=== PATIENT | female | born 1980 | race African-American/Black ===

== ENCOUNTER 2017-01-08 05:05 | Emergency (ER) | payer OTHER ==
[~2017-01-08] VITALS: Ht 180.3 cm; Wt 90.7 kg
[~2017-01-08 05:05] MED LIST: CHLO15MO2 PO; HYDR-971 PO; IBUP-1060 PO; PENI500T PO
--- NOTE | 2017-01-08 06:27 | PHYS DOC ---
Past Medical History Past Medical History: No Pertinent History Past Surgical History: No Surgical History Alcohol Use: None Drug Use: None Adult General Chief Complaint Chief Complaint: NAUSEA/VOMITING/DIARRHA HPI HPI Patient is a 36 year old female who presents with complaint of nausea, vomiting , and diarrhea that started approximately 4 hours ago. Patient states that she has had 5 episodes of vomiting since onset. Patient denies any abdominal pain currently. Patient states that it feels like a possible viral infection. Patient has had at least 2 loose stools since onset. Patient denies any significant past medical history. 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 Patient denies any significant surgical history. Patient states she is currently on her menstrual period. Patient has not taken any medications to help with symptoms. Patient denies any exposure to spoiled food. Review of Systems Review of Systems Constitutional: Denies fever or chills [] Eyes: Denies change in visual acuity, redness, or eye pain [] HENT: Denies nasal congestion or sore throat [] Respiratory: Denies cough or shortness of breath [] Cardiovascular: Denies chest pain or edema [] GI: Nausea, vomiting, diarrhea, denies abdominal pain [] : Denies dysuria or hematuria [] Musculoskeletal: Denies back pain or joint pain [] Integument: Denies rash or skin lesions [] Neurologic: Denies headache, focal weakness or sensory changes [] Endocrine: Denies polyuria or polydipsia [] Current Medications Current Medications Current Medications Medications (Trade) Dose Ordered Sig/[facility] Start Time Stop Time Status Last Admin Dose Admin Famotidine 20 mg 20 mg 1X ONCE 01/08/17 06:30 01/08/17 06:31 DC 01/08/17 06:37 20 MG Ondansetron HCl (Zofran) 4 mg 1X ONCE 01/08/17 06:30 01/08/17 06:31 DC 01/08/17 06:37 4 MG Sodium Chloride (Iv Sodium Chloride 0.9% 500ml Bag) 500 ml @ 500 mls/hr 1X ONCE 01/08/17 06:30 01/08/17 07:29 DC 01/08/17 06:37 500 MLS/HR Allergies Allergies Allergies Coded Allergies Type Severity Reaction Last Updated Verified Penicillins Adverse Reaction Intermediate Nausea 07/01/15 No Physical Exam Physical Exam Constitutional: Alert, afebrile, vital signs stable. [] HENT: Normocephalic, atraumatic, bilateral external ears normal, oropharynx moist, no oral exudates, nose normal. [] Eyes: PERRLA, EOMI, conjunctiva normal, no discharge. [] Neck: Normal range of motion, no tenderness, supple, no stridor. [] Cardiovascular:Heart rate regular rhythm, no murmur [] Lungs & Thorax: Bilateral breath sounds clear to auscultation [] Abdomen: Bowel sounds normal, soft, no tenderness, no masses, no pulsatile masses. [] Skin: Warm, dry, no erythema, no rash. [] Back: No tenderness, no CVA tenderness. [] Extremities: No tenderness, no cyanosis, no clubbing, ROM intact, no edema. [] Neurologic: Alert and oriented X 3, normal motor function, normal sensory function, no focal deficits noted. [] Current Patient Data Vital Signs Vital Signs Date Time Temp Pulse Resp B/P Pulse Ox O2 Delivery O2 Flow Rate FiO2 01/08/17 06:07 98.2 72 20 147/94 100 Room Air 98.2 Lab Values Laboratory Tests Test 01/08/17 05:50 White Blood Count 6.5x10^3/uL (4.0-11.0) Red Blood Count 3.63x10^6/uL (3.50-5.40) Hemoglobin 10.7g/dL (12.0-15.5) L Hematocrit 33.2% (36.0-47.0) L Mean Corpuscular Volume 91fL (79-100) Mean Corpuscular Hemoglobin 30pg (25-35) Mean Corpuscular Hemoglobin Concent 32g/dL (31-37) Red Cell Distribution Width 14.4% (11.5-14.5) Platelet Count 228x10^3/uL (140-400) Neutrophils (%) (Auto) 80% (31-73) H Lymphocytes (%) (Auto) 13% (24-48) L Monocytes (%) (Auto) 6% (0-9) Eosinophils (%) (Auto) 1% (0-3) Basophils (%) (Auto) 0% (0-3) Neutrophils # (Auto) 5.2x10^3uL (1.8-7.7) Lymphocytes # (Auto) 0.8x10^3/uL (1.0-4.8) L Monocytes # (Auto) 0.4x10^3/uL (0.0-1.1) Eosinophils # (Auto) 0.1x10^3/uL (0.0-0.7) Basophils # (Auto) 0.0x10^3/uL (0.0-0.2) Sodium Level 143mmol/L (136-145) Potassium Level 3.3mmol/L (3.5-5.1) L Chloride Level 109mmol/L (98-107) H Carbon Dioxide Level 26mmol/L (21-32) Anion Gap 8 (6-14) Blood Urea Nitrogen 7mg/dL (7-20) Creatinine 0.9mg/dL (0.6-1.0) Estimated GFR (Cockcroft-Gault) 85.2 BUN/Creatinine Ratio 8 (6-20) Glucose Level 130mg/dL (70-99) H Calcium Level 9.2mg/dL (8.5-10.1) Total Bilirubin 0.4mg/dL (0.2-1.0) Aspartate Amino Transferase (AST) 9U/L (15-37) L Alanine Aminotransferase (ALT) 12U/L (14-59) L Alkaline Phosphatase 55U/L (46-116) Total Protein 7.9g/dL (6.4-8.2) Albumin 3.7g/dL (3.4-5.0) Albumin/Globulin Ratio 0.9 (1.0-1.7) L Lipase 232U/L (73-393) Serum Test, Qualitative Negative (NEG) Laboratory Tests 01/08/17 05:50 Laboratory Tests 01/08/17 05:50 EKG EKG Not performed [] Radiology/Procedures Radiology/Procedures Not performed [] Course & Med Decision Making Course & Med Decision Making Pertinent Labs and Imaging studies reviewed. (See chart for details) Patient was given IV fluids, Zofran, and Pepcid. On reevaluation, patient's symptoms have improved at this time. The patient's symptoms appear consistent with viral gastroenteritis. The patient will be continued on Zofran and Pepcid as outpatient with recommended follow-up in 3-5 days a primary doctor if symptoms are not improving. Advised return emergency department for any worsening symptoms. Patient voiced understanding and in agreement with treatment plan. Dragon Disclaimer Dragon Disclaimer This electronic medical record was generated, in whole or in part, using a voice recognition dictation system. Departure Departure Impression: Primary Impression: Nausea & vomiting Additional Impression: Diarrhea Disposition: 01 HOME, SELF-CARE Condition: IMPROVED Referrals: NO PCP (PCP) Patient Instructions: Diarrhea, Nausea and Vomiting Additional Instructions: Be sure to drink plenty of fluids to stay hydrated until symptoms resolve. Follow-up with your primary doctor in 3-5 days if symptoms are not improving. Return to the emergency department for any worsening symptoms. Scripts Famotidine (Pepcid)20 Mg [id number] Mg PO BID #30 TAB Prov:RAMEZ NORWOOD MD 01/08/17 Ondansetron (Zofran Odt)4 Mg Tab.rapdis4 Mg PO Q6-8HRS PRN NAUSEA/VOMITING #15 TAB Prov:RAMEZ NORWOOD MD 01/08/17 Problem Qualifiers Primary Impression: Nausea & vomiting Vomiting type: unspecified Vomiting Intractability: non-intractable Qualified Code: R11.2 - Nausea with vomiting, unspecified Additional Impression: Diarrhea Diarrhea type: presumed infectious Qualified Code: A09 - Infectious gastroenteritis and colitis, unspecified RAMEZ NORWOOD MD Jan 08, 2017 06:27
[2017-01-08] MEDS ORDERED: IV NORMAL SALINE 500ML BAG 500 ML IV ONE (06:30)
[2017-01-08] MEDS ORDERED: ONDANSETRON PF 4 MG/2 ML VIAL. IV ONE (06:30)
[2017-01-08] MEDS ORDERED: FAMOTIDINE 20 MG/2 ML VIAL IVP ONE (06:30)
[2017-01-08 07:04] LABS: CALCIUM 9.2 mg/dL (8.5-10.1); CREATININE 0.9 mg/dL (0.6-1.0); GFR 85.2; POTASSIUM 3.3 mmol/L (3.5-5.1)
[2017-01-08 07:08] LABS: NEG OBC SER NEG; POS OBC SER POS
[2017-01-08 07:11] LABS: ALBUMIN 3.7 g/dL (3.4-5.0); ALBUMIN/GLOBULIN RATIO 0.9 (1.0-1.7); TOTAL BILIRUBIN 0.4 mg/dL (0.2-1.0); TOTAL PROTEIN 7.9 g/dL (6.4-8.2)
[2017-01-08 07:15] LABS: BASO % 0 % (0-3); EOS % 1 % (0-3); HEMATOCRIT 33.2 % (36.0-47.0); HEMOGLOBIN 10.7 g/dL (12.0-15.5); LYMPH # 0.8 x10^3/uL (1.0-4.8); LYMPH % 13 % (24-48); MEAN CORPUSCULAR HEMOGLOBIN 30 pg (25-35); MEAN CORPUSCULAR HGB CONC 32 g/dL (31-37); MEAN CORPUSCULAR VOLUME 91 fL (79-100); MONO % 6 % (0-9); NEUT % 80 % (31-73); PLATELET COUNT 228 x10^3/uL (140-400); RED BLOOD COUNT 3.63 x10^6/uL (3.50-5.40); RED CELL DISTRIBUTION WIDTH 14.4 % (11.5-14.5); WHITE BLOOD COUNT 6.5 x10^3/uL (4.0-11.0)
[2017-01-08] MEDS ORDERED: FAMO-63 PO (07:38)
[2017-01-08] MEDS ORDERED: ONDA4TAB10 PO (07:38)
[2017-01-08 07:56] VITALS: BP 141/92
== END 2017-01-08 07:58 | disposition home or self-care (01) ==
LOC: ER 05:05
DX: R11.2 Nausea with vomiting, unspecified (principal); R19.7 Diarrhea, unspecified; Z88.0 Allergy status to penicillin
CPT/HCPCS: 36415; 80053; 83690; 84703; 85027; 96361; 96374; 96375; 99284; J2405; J7040; S0028

== ENCOUNTER 2017-03-09 03:27 | Emergency (ER) | payer OTHER ==
[~2017-03-09] VITALS: Ht 180.3 cm; Wt 93.0 kg
[~2017-03-09 03:27] MED LIST changes: +FAMO-63 PO; +ONDA4TAB10 PO
[2017-03-09 04:11] LABS: BASO % 1 % (0-3); EOS % 4 % (0-3); HEMATOCRIT 33.1 % (36.0-47.0); LYMPH # 1.4 x10^3/uL (1.0-4.8); LYMPH % 28 % (24-48); MEAN CORPUSCULAR HEMOGLOBIN 31 pg (25-35); MEAN CORPUSCULAR HGB CONC 33 g/dL (31-37); MEAN CORPUSCULAR VOLUME 92 fL (79-100); MONO % 11 % (0-9); NEUT % 56 % (31-73); PLATELET COUNT 255 x10^3/uL (140-400); RED BLOOD COUNT 3.61 x10^6/uL (3.50-5.40); RED CELL DISTRIBUTION WIDTH 13.3 % (11.5-14.5)
[2017-03-09 04:23] LABS: CREATININE 0.9 mg/dL (0.6-1.0); GFR 85.2; POTASSIUM 3.3 mmol/L (3.5-5.1)
[2017-03-09 04:28] LABS: ALBUMIN 3.6 g/dL (3.4-5.0); ALBUMIN/GLOBULIN RATIO 0.9 (1.0-1.7); TOTAL BILIRUBIN 0.3 mg/dL (0.2-1.0); TOTAL PROTEIN 7.5 g/dL (6.4-8.2)
[2017-03-09] MEDS ORDERED: ONDANSETRON PF 4 MG/2 ML VIAL. IV ONE (04:30)
[2017-03-09] MEDS ORDERED: IV NORMAL SALINE 1000ML BAG 1,000 ML IV SCH (04:30)
[2017-03-09 05:19] LABS: BILIRUBIN,URINE NEGATIVE (NEG); GLUCOSE,URINE NEGATIVE (NEG); NITRITE,URINE NEGATIVE (NEG); PH,URINE 6.5; PROTEIN,URINE 30 mg/dL (NEG-TRACE)
[2017-03-09 05:34] LABS: BACTERIA,URINE FEW /HPF (0-FEW); SQUAMOUS EPITHELIAL CELL,UR MOD /LPF
[2017-03-09 06:08] VITALS: BP 118/78
[2017-03-09] MEDS ORDERED: ONDA4TAB10 SL (06:33)
--- NOTE | 2017-03-09 06:33 | PHYS DOC ---
Past Medical History Past Medical History: No Pertinent History Past Surgical History: No Surgical History Alcohol Use: None Drug Use: None Adult General Chief Complaint Chief Complaint: DIZZY/LIGHT HEADED HPI HPI Patient is a 36 year old female who presents here today secondary to feel lightheaded and dizzy for approximately 3 days. Patient denies any fevers shakes chills diarrhea dysuria frequency urgency polyuria chest pain or abdominal pain. Patient reports she's had 2 episodes of vomiting over the last 24 hours. Patient reports decreased by mouth intake secondary to nausea. Patient has any history of hypertension diabetes liver longer kidney problems heart failure COPD coronary disease asthma. Patient has any abdominal surgeries. Patient not smoke drink or do drugs. Patient is not allergic to any medications. 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 Patient's physical exam was unremarkable. Patient's heart was regular rhythm. Lungs were clear abdomen benign neuro was normal. Patient has a GCS of 15. She is alert awake and oriented 3. Normal cerebellar exam. No focal deficits. Patient's ER evaluation revealed normal labs. His vital signs remained normal the ER. Patient did receive a liter of normal saline the ER as well as Zofran to assist her. Patient felt much improved and was discharged home in stable condition. #1 lightheaded/dizzy: Etiology unclear likely secondary to viral illness possibly patient is clinically and hemodynamically stable. I discussed with the patient that the sources still unclear and that she should follow up with her primary care physician for further evaluation. Patient was given the day off from work today so that she can go and see her primary care physician for reevaluation. Review of Systems Review of Systems Constitutional: Denies fever or chills [] Eyes: Denies change in visual acuity, redness, or eye pain [] HENT: Denies nasal congestion or sore throat [] All other review systems are negative except as documented in history of present illness portion. Current Medications Current Medications Current Medications Medications (Trade) Dose Ordered Sig/[facility] Start Time Stop Time Status Last Admin Dose Admin Ondansetron HCl (Zofran) 4 mg 1X ONCE 03/09/17 04:30 03/09/17 04:31 DC 03/09/17 04:30 4 MG Sodium Chloride (Iv Sodium Chloride 0.9% 1000ml Bag) 1,000 ml @ 1,000 mls/hr Q1H 03/09/17 04:30 03/09/17 05:29 DC 03/09/17 04:30 1,000 MLS/HR Allergies Allergies Allergies Coded Allergies Type Severity Reaction Last Updated Verified Penicillins Adverse Reaction Intermediate Nausea 07/01/15 No Physical Exam Physical Exam Constitutional: Well developed, well nourished, no acute distress, non-toxic appearance. [] HENT: Normocephalic, atraumatic, bilateral external ears normal, oropharynx moist, no oral exudates, nose normal. [] Eyes: PERRLA, EOMI, conjunctiva normal, no discharge. [] Neck: Normal range of motion, no tenderness, supple, no stridor. [] Cardiovascular:Heart rate regular rhythm, no murmur [] Lungs & Thorax: Bilateral breath sounds clear to auscultation [] Abdomen: Bowel sounds normal, soft, no tenderness, no masses, no pulsatile masses. [] Skin: Warm, dry, no erythema, no rash. [] Back: No tenderness, no CVA tenderness. [] Extremities: No tenderness, no cyanosis, no clubbing, ROM intact, no edema. [] Neurologic: Alert and oriented X 3, normal motor function, normal sensory function, no focal deficits noted. [] Psychologic: Affect normal, judgement normal, mood normal. [] Current Patient Data Vital Signs Vital Signs Date Time Temp Pulse Resp B/P Pulse Ox O2 Delivery O2 Flow Rate FiO2 03/09/17 06:08 71 18 118/78 98 Room Air 03/09/17 03:45 97.7 97.7 Lab Values Laboratory Tests Test 03/09/17 03:25 03/09/17 03:45 03/09/17 04:11 Urine Collection Type Unknown Urine Color Yellow Urine Clarity Cloudy Urine pH 6.5 Urine Specific [place] 1.025 Urine Protein 30mg/dL (NEG-TRACE) Urine Glucose (UA) Negativemg/dL (NEG) Urine Ketones (Stick) Negativemg/dL (NEG) Urine Blood Large (NEG) Urine Nitrite Negative (NEG) Urine Bilirubin Negative (NEG) Urine Urobilinogen Dipstick 1.0mg/dL (0.2 mg/dL) Urine Leukocyte Esterase Moderate (NEG) Urine RBC 3-5/HPF (0-2) Urine WBC 5-10/HPF (0-4) Urine Squamous Epithelial Cells Mod/LPF Urine Bacteria Few/HPF (0-FEW) Urine Mucus Mod/LPF White Blood Count 5.0x10^3/uL (4.0-11.0) Red Blood Count 3.61x10^6/uL (3.50-5.40) Hemoglobin 11.0g/dL (12.0-15.5) L Hematocrit 33.1% (36.0-47.0) L Mean Corpuscular Volume 92fL (79-100) Mean Corpuscular Hemoglobin 31pg (25-35) Mean Corpuscular Hemoglobin Concent 33g/dL (31-37) Red Cell Distribution Width 13.3% (11.5-14.5) Platelet Count 255x10^3/uL (140-400) Neutrophils (%) (Auto) 56% (31-73) Lymphocytes (%) (Auto) 28% (24-48) Monocytes (%) (Auto) 11% (0-9) H Eosinophils (%) (Auto) 4% (0-3) H Basophils (%) (Auto) 1% (0-3) Neutrophils # (Auto) 2.8x10^3uL (1.8-7.7) Lymphocytes # (Auto) 1.4x10^3/uL (1.0-4.8) Monocytes # (Auto) 0.5x10^3/uL (0.0-1.1) Eosinophils # (Auto) 0.2x10^3/uL (0.0-0.7) Basophils # (Auto) 0.0x10^3/uL (0.0-0.2) Sodium Level 145mmol/L (136-145) Potassium Level 3.3mmol/L (3.5-5.1) L Chloride Level 107mmol/L (98-107) Carbon Dioxide Level 29mmol/L (21-32) Anion Gap 9 (6-14) Blood Urea Nitrogen 10mg/dL (7-20) Creatinine 0.9mg/dL (0.6-1.0) Estimated GFR (Cockcroft-Gault) 85.2 BUN/Creatinine Ratio 11 (6-20) Glucose Level 105mg/dL (70-99) H Calcium Level 9.0mg/dL (8.5-10.1) Total Bilirubin 0.3mg/dL (0.2-1.0) Aspartate Amino Transferase (AST) 12U/L (15-37) L Alanine Aminotransferase (ALT) 17U/L (14-59) Alkaline Phosphatase 58U/L (46-116) Troponin I Quantitative < 0.017ng/mL (0.000-0.055) Total Protein 7.5g/dL (6.4-8.2) Albumin 3.6g/dL (3.4-5.0) Albumin/Globulin Ratio 0.9 (1.0-1.7) L POC Urine HCG, Qualitative Hcg negative (Negative) Laboratory Tests 03/09/17 03:45 Laboratory Tests 03/09/17 03:45 EKG EKG [] Radiology/Procedures Radiology/Procedures [] Course & Med Decision Making Course & Med Decision Making Pertinent Labs and Imaging studies reviewed. (See chart for details) [] Dragon Disclaimer Dragon Disclaimer This electronic medical record was generated, in whole or in part, using a voice recognition dictation system. Departure Departure Impression: Primary Impression: Nausea & vomiting Additional Impression: Dehydration Disposition: 01 HOME, SELF-CARE Condition: IMPROVED Referrals: NO PCP (PCP) Patient Instructions: Dehydration, Adult, Nausea and Vomiting Scripts Ondansetron (Zofran Odt)4 Mg Tab.rapdis1 Tab SL Q6HRS PRN NAUSEA #12 TAB Prov:RACHEL GARCIA MD 03/09/17 Problem Qualifiers RACHEL GARCIA MD Mar 09, 2017 06:33
--- NOTE | 2017-03-09 07:42 | EKG ---
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
== END 2017-03-09 06:40 | disposition home or self-care (01) ==
LOC: ER 03:27
DX: R11.2 Nausea with vomiting, unspecified (principal); E86.0 Dehydration; R42 Dizziness and giddiness; Z88.0 Allergy status to penicillin
CPT/HCPCS: 36415; 80053; 81001; 81025; 84484; 85027; 93005; 96361; 96374; 99285; J2405; J7030; 87086

== ENCOUNTER → 2017-04-05 | Outpatient (CLI) | payer OTHER ==
[2017-03-09 06:08] VITALS: BP 118/78
[~2017-04-05] MED LIST changes: +ONDA4TAB10 SL
--- NOTE | 2017-04-05 08:59 | KCIC ---
PROCEDURE Lumbar radiographs HISTORY Acute right-sided low back pain, left-sided sciatica for 1 month COMPARISON None FINDINGS Five views of the lumbar spine are submitted. There is mild levoscoliosis centered about L4. Lumbar vertebral body stature and AP alignment are maintained. Intervertebral disc spaces are adequate. No acute osseous abnormality is identified by radiographs. IMPRESSION There is mild lumbar levoscoliosis. Electronically signed by: Ham Sparks MD (April 05, 2017 08:58:07)
== END | disposition home or self-care (01) ==
LOC: KCIC 08:28
PROVIDERS: ATTEND Family Medicine
DX: M41.86 Other forms of scoliosis, lumbar region (principal)
CPT/HCPCS: 72110

== ENCOUNTER 2017-12-07 04:44 | Emergency (ER) | payer OTHER ==
[2017-12-07] MEDS: ACETAMINOPHEN 500 MG TABLET PO (05:43)
[2017-12-07] MEDS: IBUPROFEN 800 MG TABLET. PO (05:44)
[2017-12-07] MEDS: ONDANSETRON ODT 4 MG TAB.RAPDIS. PO (05:44)
[2017-12-07 06:19] LABS: NEGATIVE OBC STREP NEG; POSITIVE OBC STREP POS
[2017-12-07 06:36] LABS: INFLUENZA A PATIENT NEGATIVE (NEGATIVE)
[2017-12-07 06:37] LABS: INFLUENZA B PATIENT NEGATIVE (NEGATIVE); OBC FLU VALID
== END 2017-12-07 07:25 | disposition home or self-care (01) ==
LOC: ER 04:44
DX: B34.9 Viral infection, unspecified (principal); Z88.0 Allergy status to penicillin
CPT/HCPCS: 71045; 87070; 87804; 87804-59; 87880; 99285-25; Q0162

== ENCOUNTER 2020-11-13 06:42 | Emergency (ER) | payer SELFPAY ==
[~2020-11-13] VITALS: Ht 180.3 cm; Wt 84.0 kg
[~2020-11-13 06:42] MED LIST changes: +CODE10LI PO; +HYDR-3164 PO; -HYDR-971 PO; +OSEL75CA PO
--- NOTE | 2020-11-13 06:51 | PHYS DOC ---
Past Medical History Past Medical History: No Pertinent History Past Surgical History: No Surgical History Smoking Status: Never Smoker Alcohol Use: Rarely Drug Use: None General Adult EDM: Chief Complaint: BLOOD IN URINE HPI: HPI: 40-year-old female presents with report of clear vaginal discharge that has been ongoing for the past several weeks. Patient also reports some low back pain. Denies dysuria or hematuria. Patient reports was recently seen at [facility] for same and reports had her urine tested and did a vaginal swab. Reports she was called and notified she had bacterial vaginosis and was started on MetroGel as she is unable to tolerate the Flagyl PO. Patient reports she took as directed but continued to have the discharge. Patient reports yesterday she noted significant amount of bleeding after intercourse with her . Patient reports a similar occurrence 6 months ago. 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 Reports she looked up her symptoms on "[employer] "and was concerned for a serious issue. Patient therefore presents to the ER for further evaluation. Review of Systems: Review of Systems: Constitutional: Denies fever or chills Eyes: Denies redness or eye pain HENT: Denies nasal congestion or sore throat Respiratory: Denies cough or shortness of breath Cardiovascular: Denies chest pain or palpitations GI: Denies abdominal pain, nausea, or vomiting : Denies dysuria or hematuria PHOTOVOLTAIC SOLAR CELL DESIGNER: Reports abnormal vaginal bleeding and vaginal discharge Musculoskeletal: Reports low back pain; denies joint pain Integument: Denies rash or skin lesions Neurologic: Denies headache, focal weakness or sensory changes Complete systems were reviewed and found to be within normal limits, except as documented in this note. Allergies: Allergies: Allergies Coded Allergies Type Severity Reaction Last Updated Verified Penicillins Adverse Reaction Intermediate Nausea 07/01/15 No Physical Exam: PE: Constitutional: Well developed, well nourished, no acute distress, non-toxic appearance HENT: Normocephalic, atraumatic Eyes: Conjunctiva normal, no discharge Neck: Normal range of motion, no tenderness, supple Lungs & Thorax: No respiratory distress, equal chest rise and fall Abdomen: Soft, no tenderness, no guarding/rebound tenderness/distention Skin: Warm, dry, no erythema, no rash Back: No midline tenderness, bilateral lumbar paraspinal tenderness, no CVA tenderness 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 The patient reportedly could not undergo transvaginal examination due to significant pain when it was attempted. Urinary bladder is empty and is also limits evaluation. Uterus measures 11 cm x 4.8 cm x 5 cm. Heterogeneity of the myometrium is noted. Fibroid involvement of the myometrium especially inferiorly is suspected on this limited exam. Endometrial thickness of 0.6 cm present. Minimal fluid is questioned in the endometrial cavity. Ovaries are not visualized. No suspicious pelvic mass suspected. No pelvic free fluid. Impression: Minimal fluid in the endometrial cavity suggested. Fibroid involvement of the myometrium. Electronically signed by: Ankit Aquino MD (11/13/2020 8:44 AM) [id number] PROCEDURE: CT ABD PELV W/ IV CONTRST ONLY Examination: CT ABDOMEN+PELVIS W History: pelvic pain, vaginal bleeding, mass noted eval for fibroid vs abnormal mass Comparison/Correlation: 11/15/2005 CT abdomen with contrast, 11/13/2020 pelvic ultrasound Findings: Axial images of the abdomen and pelvis were obtained following IV contrast. Sagittal and coronal reformatted images were provided. Mild distention of the left hepatic duct is new since the prior exam. No intrahepatic biliary dilatation otherwise. No common bile duct dilatation. Spleen, pancreas, adrenal glands, and kidneys are normal. Urinary bladder is unremarkable. No bowel obstruction or extraluminal gas. Moderate reversible component is present. No inflammatory findings within the cecum. Fullness of the lower uterine segment which probably corresponds with fibroid involvement noted at this level on ultrasound examination is present. Artifact limits evaluation however. Small amount of pelvic free fluid is present. No extraluminal gas. No obstruction. Bony structures are unremarkable. Impression: Nonspecific mild dilatation of the left hepatic duct is present. Correlate clinically in determining further imaging assessment with MRCP exam without and with contrast if able. Fullness of the lower uterine segment which probably may represent fibroid involvement. Exam is somewhat limited due to artifact. Further evaluation with MRI of the pelvis without and with contrast is recommended. Multiple for more definitive assessment on a nonemergent basis. Electronically signed by: Ankit Aquino MD (11/13/2020 9:56 AM) [id number] Course & Med Decision Making: Course & Med Decision Making Pertinent Labs and Imaging studies reviewed. (See chart for details) Patient presents with report of vaginal discharge for the past several weeks combined with abnormal vaginal bleeding yesterday. Patient had previously been seen at [facility] and tested for STDs. Reports history of BV, of which patient reports using MetroGel. Pelvic exam performed. Labs obtained and posted to chart. Pelvic ultrasound..... Patient stable for discharge with outpatient follow-up with PCP/PHOTOVOLTAIC SOLAR CELL DESIGNER. PHOTOVOLTAIC SOLAR CELL DESIGNER referral provided. Discussed findings and plan with patient, who acknowledges understanding and agreement. Dragon Disclaimer: Jaun Disclaimer: This electronic medical record was generated, in whole or in part, using a voice recognition dictation system. Departure Departure Impression: Primary Impression: Abnormal vaginal bleeding Additional Impressions: Hypokalemia Anemia Qualified Codes: D64.9 - Anemia, unspecified Disposition: 01 DC HOME SELF CARE/HOMELESS Condition: STABLE Referrals: NO PCP (PCP) GREG WOOD Jr, MD Patient Instructions: Abnormal Uterine Bleeding, Anemia, FAQs, Hypokalemia, Potassium Content of Foods, Uterine Fibroid, [id number] Additional Instructions: Pelvic rest until seen by Dr. Wood. (NO sexual activity, tampons, etc) Call Dr. Wood's office today. Let them know that the ED physician, Dr. Durbin, discussed your case with Dr. Wood and had planned on trying to get you into the office early next week. KORI DURBIN DO Nov 13, 2020 06:51
[2020-11-13] MEDS ORDERED: IV NORMAL SALINE 1000ML BAG 1,000 ML IV ONE (07:15)
[2020-11-13 07:56] LABS: BASO % 1 % (0-3); EOS # 0.1 x10^3/uL (0.0-0.7); EOS % 1 % (0-3); HEMATOCRIT 24.6 % (36.0-47.0); LYMPH # 0.8 x10^3/uL (1.0-4.8); LYMPH % 13 % (24-48); MEAN CORPUSCULAR HEMOGLOBIN 28 pg (25-35); MEAN CORPUSCULAR HGB CONC 33 g/dL (31-37); MEAN CORPUSCULAR VOLUME 85 fL (79-100); MONO # 0.5 x10^3/uL (0.0-1.1); MONO % 8 % (0-9); NEUT # 4.7 x10^3/uL (1.8-7.7); NEUT % 78 % (31-73); PLATELET COUNT 266 x10^3/uL (140-400); RED BLOOD COUNT 2.89 x10^6/uL (3.50-5.40); RED CELL DISTRIBUTION WIDTH 16.1 % (11.5-14.5)
[2020-11-13 08:18] LABS: PREG TEST PT QUAL NEGATIVE (NEG)
[2020-11-13 08:23] LABS: ALBUMIN 3.4 g/dL (3.4-5.0); CALCIUM 8.7 mg/dL (8.5-10.1); CREATININE 0.7 mg/dL (0.6-1.0); GFR 111.6; MAGNESIUM 1.8 mg/dL (1.8-2.4); TOTAL BILIRUBIN 0.5 mg/dL (0.2-1.0); TOTAL PROTEIN 6.9 g/dL (6.4-8.2)
[2020-11-13 08:28] LABS: POTASSIUM 2.7 mmol/L (3.5-5.1)
--- NOTE | 2020-11-13 08:46 | RAD ---
Examination: US PELVIS COMPLETE History: menorrhagia Comparison/Correlation: None Findings: Transabdominal pelvic ultrasound performed. The patient reportedly could not undergo transv aginal examination due to significant pain when it was attempted. Urinary bladder is empty and is als o limits evaluation. Uterus measures 11 cm x 4.8 cm x 5 cm. Heterogeneity of the myometrium is noted. Fibroid involvement of the myometrium especially inferiorly is suspected on this limited exam. Endometrial thickness of 0 .6 cm present. Minimal fluid is questioned in the endometrial cavity. Ovaries are not visualized. No suspicious pelvic mass suspected. No pelvic free fluid. Impression: Minimal fluid in the endometrial cavity suggested. Fibroid involvement of the myometrium. Electronically signed by: Ankit Aquino MD (11/13/2020 8:44 AM) [id number]
[2020-11-13] MEDS ORDERED: IOHEXOL 300 MG/ML 100ML VIAL. IV ONE (09:30)
[2020-11-13] MEDS ORDERED: CONTRAST GIVEN. MC PRN (09:30)
[2020-11-13 09:43] LABS: BILIRUBIN,URINE NEGATIVE (NEG); CLARITY,URINE CLOUDY; COLOR,URINE RED; NITRITE,URINE NEGATIVE (NEG); PROTEIN,URINE 100 mg/dL (NEG-TRACE); UROBILINOGEN,URINE 0.2 mg/dL (0.2 mg/dL)
[2020-11-13 09:49] LABS: RBC,URINE TNTC /HPF (0-2)
[2020-11-13 09:50] LABS: BACTERIA,URINE FEW /HPF (0-FEW)
--- NOTE | 2020-11-13 09:59 | RAD ---
Examination: CT ABDOMEN+PELVIS W History: pelvic pain, vaginal bleeding, mass noted eval for fibroid vs abnormal mass Comparison/Correlation: 11/15/2005 CT abdomen with contrast, 11/13/2020 pelvic ultrasound Findings: Axial images of the abdomen and pelvis were obtained following IV contrast. Sagittal and co eric reformatted images were provided. Mild distention of the left hepatic duct is new since the prior exam. No intrahepatic biliary dilatat ion otherwise. No common bile duct dilatation. Spleen, pancreas, adrenal glands, and kidneys are norm al. Urinary bladder is unremarkable. No bowel obstruction or extraluminal gas. Moderate reversible compon ent is present. No inflammatory findings within the cecum. Fullness of the lower uterine segment which probably corresponds with fibroid involvement noted at th is level on ultrasound examination is present. Artifact limits evaluation however. Small amount of pelvic free fluid is present. No extraluminal gas. No obstruction. Bony structures are unremarkable. Impression: Nonspecific mild dilatation of the left hepatic duct is present. Correlate clinically in determining further imaging assessment with MRCP exam without and with contrast if able. Fullness of the lower uterine segment which probably may represent fibroid involvement. Exam is somew hat limited due to artifact. Further evaluation with MRI of the pelvis without and with contrast is r ecommended. Multiple for more definitive assessment on a nonemergent basis. Electronically signed by: Ankit Aquino MD (11/13/2020 9:56 AM) [id number]
[2020-11-13 10:18] VITALS: BP 144/75
[2020-11-13] MEDS ORDERED: POTASSIUM BICARB 20 MEQ EFFERVESCENT TABLET. PO ONE (11:00)
== END 2020-11-13 12:00 | disposition home or self-care (01) ==
LOC: ER 06:42
DX: N93.8 Other specified abnormal uterine and vaginal bleeding (principal); E87.6 Hypokalemia; D64.9 Anemia, unspecified; M54.5 Low back pain
CPT/HCPCS: 74177; 76856; 80053; 81001; 83735; 84703; 85025; 87086; 87491; 87591; 96360; 99285; J7030; Q0111; Q9967

== ENCOUNTER 2020-12-02 09:08 | Emergency (ER) | payer SELFPAY ==
[~2020-12-02] VITALS: Ht 182.9 cm; Wt 84.0 kg
[2020-12-02 09:20] VITALS: BP 164/67
--- NOTE | 2020-12-02 09:28 | PHYS DOC ---
Past Medical History Past Medical History: No Pertinent History (RANDALL KERNS APRN) Past Surgical History: No Surgical History (RANDALL KERNS APRN) Smoking Status: Never Smoker Alcohol Use: Rarely Drug Use: None (RANDALL KERNS APRN) General Adult EDM: Chief Complaint: ABDOMINAL PAIN HPI: HPI: Patient is a 40 year old female with history of newly diagnosed uterine fibroids on November 13, 2020 who presents to the ED today complaining of moderate pelvic pain from the fibroids. She states she has had this pain on and off since her diagnosis but today her period started and the pain got worse. She states she tried following up with DR. Wood [facility] and go to the office and was told she has to pay money which she did not have. She states she followed up with [facility] who told her they we will set her up with a program that will unable her to have a hysterectomy. She states she currently needs something for pain to hold her up until she is seen at [facility]. She states her bleeding is minimal. She is also asking if we can do hysterectomy in the ED. She states she has tried taking Tylenol and Motrin as recommended with no relief (RANDALL KERNS APRN) Review of Systems: Review of Systems: Constitutional: Denies fever or chills. [] Eyes: Denies change in visual acuity. [] HENT: Denies nasal congestion or sore throat. [] Respiratory: Denies cough or shortness of breath. [] Cardiovascular: Denies chest pain or edema. [] GI: Reports abdominal pain, denies nausea, vomiting, bloody stools or diarrhea. [] : Denies dysuria. [] Musculoskeletal: Denies back pain or joint pain. [] Integument: Denies rash. [] Neurologic: Denies headache, focal weakness or sensory changes. [] Psychiatric: Denies depression or anxiety. [] (RANDALL KERNS APRN) Heart Score: Risk Factors: Risk Factors: DM, Current or recent (<one month) smoker, HTN, HLP, family history of CAD, obesity. Risk Scores: Score 0 - 3: 2.5% MACE over next 6 weeks - Discharge Home Score 4 - 6: 20.3% MACE over next 6 weeks - Admit for Clinical Observation Score 7 - 10: 72.7% MACE over next 6 weeks - Early Invasive Strategies (RANDALL KERNS APRN) Allergies: Allergies: Allergies Coded Allergies Type Severity Reaction Last Updated Verified Penicillins Adverse Reaction Intermediate Nausea 07/01/15 No (RANDALL KERNS APRN) Physical Exam: PE: Constitutional: Well developed, well nourished, no acute distress, non-toxic appearance. [] HENT: Normocephalic, atraumatic, bilateral external ears normal, oropharynx moist, no oral exudates, nose normal. [] Eyes: PERRLA, EOMI, conjunctiva normal, no discharge. [] Neck: Normal range of motion, no tenderness, supple, no stridor. [] Cardiovascular:Heart rate regular rhythm, no murmur [] Lungs & Thorax: Bilateral breath sounds clear to auscultation [] Abdomen: Bowel sounds normal, soft, no tenderness, no masses, no pulsatile masses. [] Pelvic exam deferred per patient request. Skin: Warm, dry, no erythema, no rash. [] Back: No tenderness, no CVA tenderness. [] Extremities: No tenderness, no cyanosis, no clubbing, ROM intact, no edema. [] Neurologic: Alert and oriented X 3, normal motor function, normal sensory function, no focal deficits noted. [] Psychologic: Affect normal, judgement normal, mood normal. [] (RANDALL KERNS APRN) EKG: EKG: [] (RANDALL KERNS APRN) Radiology/Procedures: Radiology/Procedures: [] (RANDALL KERNS APRN) Course & Med Decision Making: Course & Med Decision Making Pertinent Labs and Imaging studies reviewed. (See chart for details) This is a 40-year-old female patient presented to the ED today complaining of pelvic pain from fibroids currently on her cycle. Reports not bleeding heavily. Has plan to be set up for hysterectomy through [facility]. Was given prescription for hydrocodone encouraged to continue taking ibuprofen with date. (RANDALL KERNS APRN) Dragon Disclaimer: Dragon Disclaimer: This electronic medical record was generated, in whole or in part, using a voice recognition dictation system. (RANDALL KERNS APRN) Departure Departure Impression: Primary Impression: Pelvic pain Disposition: 01 DC HOME SELF CARE/HOMELESS Condition: STABLE Referrals: NO PCP (PCP) Follow-up with [facility] Patient Instructions: Fibroids, [id number] Additional Instructions: You were seen for pelvic pain. Please follow-up with [facility]. Take the prescribed pain medicine as needed for severe pain. Continue taking ibuprofen as needed for pain. Scripts Ondansetron (ONDANSETRON ODT) 4 Mg Tab.rapdis 1 TAB PO PRN Q6-8HRS, #30 TAB Prov: RANDALL KERNS APRN 12/02/20 Hydrocodone Bit/Acetaminophen (HYDROCODONE-APAP 5-325 ) 1 Tab Tablet 1 TAB PO PRN Q6HRS PRN for PAIN, #30 TAB 0 Refills Prov: RANDALL KERNS APRN 12/02/20 Attending Signature Attending Signature I have reviewed the PA/RECRUITMENT COORDINATOR's note and plan of care. I was available for consultation as needed during the patient's visit in the emergency department. I agree with the clinical impression, plan, and disposition. (KORI DURBIN DO) RANDALL KERNS APRN Dec 02, 2020 09:28 KORI DURBIN DO Dec 02, 2020 14:48
[2020-12-02] MEDS ORDERED: HYDR-2761 PO (09:34)
[2020-12-02] MEDS ORDERED: ONDA4TAB12 PO (09:41)
== END 2020-12-02 09:41 | disposition home or self-care (01) ==
LOC: ER 09:08
DX: R10.2 Pelvic and perineal pain (principal); Z90.710 Acquired absence of both cervix and uterus; Z88.0 Allergy status to penicillin
CPT/HCPCS: 99283

== ENCOUNTER 2020-12-27 01:56 | Emergency (ER) | payer SELFPAY ==
[~2020-12-27] VITALS: Ht 180.3 cm; Wt 82.7 kg
[~2020-12-27 01:56] MED LIST changes: +HYDR-2761 PO; +ONDA4TAB12 PO
--- NOTE | 2020-12-27 02:23 | PHYS DOC ---
Past Medical History Past Medical History: Other Additional Past Medical Histor: UTERINE FIBROIDS Past Surgical History: No Surgical History Smoking Status: Never Smoker Alcohol Use: Rarely Drug Use: None General Adult EDM: Chief Complaint: LOWER BACK PAIN OR INJURY HPI: HPI: Patient is a 40 year old female who presented to ER for evaluation of pelvic pain with vaginal bleeding. Patient says she just started her period Yesterday. Patient was diagnosed with uterine fibroid on November 13 of last year. Patient was seen by an [facility] doctor, who recommended that she need to have a hysterectomy done. Patient is currently followed with her [facility] at [facility]. Patient denies any cough or fever. Patient was seen here on December 02, 2020 for the same pain, she was given a prescription for a total of 30 tablets of [place] 5/325. Review of Systems: Review of Systems: Constitutional: Denies fever or chills. [] Eyes: Denies change in visual acuity. [] HENT: Denies nasal congestion or sore throat. [] Respiratory: Denies cough or shortness of breath. [] Cardiovascular: Denies chest pain or edema. [] GI: Denies abdominal pain, nausea, vomiting, bloody stools or diarrhea. [] : Denies dysuria. Positive for pelvic pain Musculoskeletal: Denies back pain or joint pain. [] Integument: Denies rash. [] Neurologic: Denies headache, focal weakness or sensory changes. [] Endocrine: Denies polyuria or polydipsia. [] Lymphatic: Denies swollen glands. [] Psychiatric: Denies depression or anxiety. [] Heart Score: Risk Factors: Risk Factors: DM, Current or recent (<one month) smoker, HTN, HLP, family history of CAD, obesity. Risk Scores: Score 0 - 3: 2.5% MACE over next 6 weeks - Discharge Home Score 4 - 6: 20.3% MACE over next 6 weeks - Admit for Clinical Observation Score 7 - 10: 72.7% MACE over next 6 weeks - Early Invasive Strategies Current Medications: Current Medications Medications (Trade) Dose Ordered Sig/Gail Start Time Stop Time Status Last Admin Dose Admin Ketorolac Tromethamine (Toradol Im) 60 mg 1X ONCE 12/27/20 02:30 12/27/20 02:31 Allergies: Allergies: Allergies Coded Allergies Type Severity Reaction Last Updated Verified Penicillins Adverse Reaction Intermediate Nausea 8/5/15 No Physical Exam: PE: Constitutional: Well developed, well nourished, no acute distress, non-toxic appearance. [] HENT: Normocephalic, atraumatic, bilateral external ears normal, oropharynx moist, no oral exudates, nose normal. [] Eyes: PERRLA, EOMI, conjunctiva normal, no discharge. [] Neck: Normal range of motion, no tenderness, supple, no stridor. [] Cardiovascular:Heart rate regular rhythm, no murmur [] Lungs & Thorax: Bilateral breath sounds clear to auscultation [] Abdomen: Bowel sounds normal, soft, no tenderness, no masses, no pulsatile masses. [] Skin: Warm, dry, no erythema, no rash. [] Back: No tenderness, no CVA tenderness. [] Extremities: No tenderness, no cyanosis, no clubbing, ROM intact, no edema. [] Neurologic: Alert and oriented X 3, normal motor function, normal sensory function, no focal deficits noted. [] Psychologic: Affect normal, judgement normal, mood normal. [] Current Patient Data: Vital Signs: Vital Signs Date Time Temp Pulse Resp B/P (MAP) Pulse Ox O2 Delivery O2 Flow Rate FiO2 12/27/20 02:00 98.6 83 20 168/98 (121) 100 Room Air 98.6 EKG: EKG: [] Radiology/Procedures: Radiology/Procedures: [] Course & Med Decision Making: Course & Med Decision Making Pertinent Labs and Imaging studies reviewed. (See chart for details) Patient is a 40-year-old female who presented to ER due to pelvic pain, patient has history of uterine fibroid. Patient will need to follow-up with an [facility] physician for outpatient evaluation treatment Dragon Disclaimer: Draglavern Disclaimer: This electronic medical record was generated, in whole or in part, using a voice recognition dictation system. Departure Departure Impression: Primary Impression: Pelvic pain Disposition: 01 DC HOME SELF CARE/HOMELESS Condition: STABLE Referrals: NO PCP (PCP) GREG CAMERON Jr, MD Patient Instructions: Pelvic Pain, Female Additional Instructions: Thank you for visiting our Emergency Department. We appreciate you trusting us with your care. If any additional problems come up don't hesitate to return to visit us. Please follow up with your primary care provider so they can plan additional care if needed and know about the problem that you had. If symptoms worsen come back to the Emergency Department. Any concerning symptoms that start such as chest pain, shortness of air, weakness or numbness on one side of the body, running high fevers or any other concerning symptoms return to the ER. Scripts Tramadol Hcl (TRAMADOL HCL) 50 Mg Tablet 50 MG PO Q6HRS PRN for PAIN, #20 TAB Prov: LOREN CRAIG DO 12/27/20 Ondansetron Hcl (ZOFRAN) 4 Mg Tablet 1 TAB PO Q6HRS PRN for NAUSEA, #20 TAB Prov: LOREN CRAIG DO 12/27/20 Naproxen Sodium (ANAPROX DS) 550 Mg Tablet 1 TAB PO BID PRN for PAIN for 15 Days, #30 TAB 0 Refills Prov: LOREN CRAIG DO 12/27/20 LOREN CRAIG DO Dec 27, 2020 02:23
[2020-12-27] MEDS ORDERED: KETOROLAC 60 MG/2 ML VIAL. IM ONE (02:30)
[2020-12-27 03:00] VITALS: BP 134/78
[2020-12-27] MEDS ORDERED: ONDA4TAB7 PO (03:36)
[2020-12-27] MEDS ORDERED: NAPR-682 PO (03:36)
[2020-12-27] MEDS ORDERED: TRAM50TA PO (03:36)
== END 2020-12-27 03:45 | disposition home or self-care (01) ==
LOC: ER 01:56
DX: R10.2 Pelvic and perineal pain (principal); N93.9 Abnormal uterine and vaginal bleeding, unspecified
CPT/HCPCS: 81025; 96372; 99283; J1885

== ENCOUNTER 2021-01-07 02:38 | Emergency (ER) | payer OTHER ==
[~2021-01-07] VITALS: Ht 180.3 cm; Wt 79.0 kg
[~2021-01-07 02:38] MED LIST changes: +NAPR-682 PO; +ONDA4TAB7 PO; +TRAM50TA PO
[2021-01-07 02:58] LABS: BILIRUBIN,URINE NEGATIVE (NEG); CLARITY,URINE CLEAR; COLOR,URINE YELLOW; NITRITE,URINE NEGATIVE (NEG); PH,URINE 7.5 (<5.0-8.0); PROTEIN,URINE NEGATIVE (NEG-TRACE)
[2021-01-07 03:03] LABS: BACTERIA,URINE FEW /HPF (0-FEW); WBC,URINE >40 /HPF (0-4)
[2021-01-07 03:19] LABS: BASO % 0 % (0-3); EOS % 0 % (0-3); HEMATOCRIT 23.1 % (36.0-47.0); HEMOGLOBIN 7.1 g/dL (12.0-15.5); LYMPH # 0.4 x10^3/uL (1.0-4.8); LYMPH % 4 % (24-48); MEAN CORPUSCULAR HEMOGLOBIN 23 pg (25-35); MEAN CORPUSCULAR HGB CONC 31 g/dL (31-37); MEAN CORPUSCULAR VOLUME 76 fL (79-100); MONO # 0.6 x10^3/uL (0.0-1.1); MONO % 6 % (0-9); NEUT # 8.9 x10^3/uL (1.8-7.7); NEUT % 89 % (31-73); PLATELET COUNT 445 x10^3/uL (140-400); RED BLOOD COUNT 3.02 x10^6/uL (3.50-5.40); RED CELL DISTRIBUTION WIDTH 17.7 % (11.5-14.5)
[2021-01-07 03:28] LABS: CREATININE 0.8 mg/dL (0.6-1.0); GFR 95.6; POTASSIUM 3.3 mmol/L (3.5-5.1)
[2021-01-07] MEDS ORDERED: ONDANSETRON PF 4 MG/2 ML VIAL. IVP ONE (03:30)
[2021-01-07] MEDS ORDERED: IV NORMAL SALINE 1000ML BAG 1,000 ML IV ONE (03:30)
[2021-01-07 03:33] LABS: ALBUMIN 3.3 g/dL (3.4-5.0); ALBUMIN/GLOBULIN RATIO 0.7 (1.0-1.7); TOTAL BILIRUBIN 0.4 mg/dL (0.2-1.0)
[2021-01-07 03:38] LABS: % LYMPHS 4 % (24-48); % MONOS 7 % (0-10); % SEGS 89 % (35-66); ANISOCYTOSIS SLIGHT; HYPOCHROMIA MOD; PLT ESTIMATE ADEQUATE (ADEQUATE); POLYCHROMASIA SLIGHT
[2021-01-07] MEDS ORDERED: METOCLOPRAMIDE HCL 10 MG/2 ML VIAL. IVP ONE (03:45)
[2021-01-07] MEDS ORDERED: ONDA4TAB12 PO (04:19)
[2021-01-07] MEDS ORDERED: CEPH500C PO (04:19)
--- NOTE | 2021-01-07 04:19 | ED.ADGEN ---
Past Medical History Past Medical History: Other Additional Past Medical Histor: UTERINE FIBROIDS Past Surgical History: No Surgical History Smoking Status: Never Smoker Alcohol Use: Rarely Drug Use: None General Adult EDM: Chief Complaint: ABDOMINAL PAIN HPI: HPI: Patient is a 40 year old [f__sex] who presents with [] Review of Systems: Review of Systems: Constitutional: Denies fever or chills. [] Eyes: Denies change in visual acuity. [] HENT: Denies nasal congestion or sore throat. [] Respiratory: Denies cough or shortness of breath. [] Cardiovascular: Denies chest pain or edema. [] GI: Denies abdominal pain, nausea, vomiting, bloody stools or diarrhea. [] : Denies dysuria. [] Musculoskeletal: Denies back pain or joint pain. [] Integument: Denies rash. [] Neurologic: Denies headache, focal weakness or sensory changes. [] Endocrine: Denies polyuria or polydipsia. [] Lymphatic: Denies swollen glands. [] Psychiatric: Denies depression or anxiety. [] Current Medications: Current Medications Medications (Trade) Dose Ordered Sig/Gail Start Time Stop Time Status Last Admin Dose Admin Ceftriaxone Sodium (Rocephin) 1 gm 1X ONCE 01/07/21 04:30 01/07/21 04:31 DC 01/07/21 04:54 1 GM Ketorolac Tromethamine (Toradol 30mg Vial) 30 mg 1X ONCE 01/07/21 04:30 01/07/21 04:31 DC 01/07/21 04:53 30 MG Metoclopramide HCl (Reglan Vial) 10 mg 1X ONCE 01/07/21 03:45 01/07/21 03:46 DC 01/07/21 03:44 10 MG Ondansetron HCl (Zofran) 4 mg 1X ONCE 01/07/21 03:30 01/07/21 03:31 DC 01/07/21 03:00 4 MG Sodium Chloride 1,000 ml @ 1,000 mls/hr 1X ONCE 01/07/21 03:30 01/07/21 04:29 DC 01/07/21 02:57 1,000 MLS/HR Allergies: Allergies: Allergies Coded Allergies Type Severity Reaction Last Updated Verified Penicillins Adverse Reaction Intermediate Nausea 07/01/15 No Physical Exam: PE: Constitutional: Well developed, well nourished, no acute distress, non-toxic appearance. [] HENT: Normocephalic, atraumatic, bilateral external ears normal, oropharynx moist, no oral exudates, nose normal. [] Eyes: PERRLA, EOMI, conjunctiva normal, no discharge. [] Neck: Normal range of motion, no tenderness, supple, no stridor. [] Cardiovascular:Heart rate regular rhythm, no murmur [] Lungs & Thorax: Bilateral breath sounds clear to auscultation [] Abdomen: Bowel sounds normal, soft, no tenderness, no masses, no pulsatile masses. [] Skin: Warm, dry, no erythema, no rash. [] Back: No tenderness, no CVA tenderness. [] Extremities: No tenderness, no cyanosis, no clubbing, ROM intact, no edema. [] Neurologic: Alert and oriented X 3, normal motor function, normal sensory function, no focal deficits noted. [] Psychologic: Affect normal, judgement normal, mood normal. [] Current Patient Data: Labs: Laboratory Tests Test 01/07/21 02:39 01/07/21 02:46 01/07/21 03:00 Urine Collection Type Unknown Urine Color Yellow Urine Clarity Clear Urine pH 7.5 (<5.0-8.0) Urine Specific [place] 1.015 (1.000-1.030) Urine Protein Negative mg/dL (NEG-TRACE) Urine Glucose (UA) Negative mg/dL (NEG) Urine Ketones (Stick) 40 mg/dL (NEG) Urine Blood Small (NEG) Urine Nitrite Negative (NEG) Urine Bilirubin Negative (NEG) Urine Urobilinogen Dipstick 1.0 mg/dL (0.2 mg/dL) Urine Leukocyte Esterase Large (NEG) Urine RBC 3-5 /HPF (0-2) Urine WBC >40 /HPF (0-4) Urine Squamous Epithelial Cells Mod /LPF Urine Bacteria Few /HPF (0-FEW) Urine Mucus Marked /LPF POC Urine HCG, Qualitative Hcg negative (Negative) White Blood Count 10.0 x10^3/uL (4.0-11.0) Red Blood Count 3.02 x10^6/uL (3.50-5.40) L Hemoglobin 7.1 g/dL (12.0-15.5) L Hematocrit 23.1 % (36.0-47.0) L Mean Corpuscular Volume 76 fL (79-100) L Mean Corpuscular Hemoglobin 23 pg (25-35) L Mean Corpuscular Hemoglobin Concent 31 g/dL (31-37) Red Cell Distribution Width 17.7 % (11.5-14.5) H Platelet Count 445 x10^3/uL (140-400) H Neutrophils (%) (Auto) 89 % (31-73) H Lymphocytes (%) (Auto) 4 % (24-48) L Monocytes (%) (Auto) 6 % (0-9) Eosinophils (%) (Auto) 0 % (0-3) Basophils (%) (Auto) 0 % (0-3) Neutrophils # (Auto) 8.9 x10^3/uL (1.8-7.7) H Lymphocytes # (Auto) 0.4 x10^3/uL (1.0-4.8) L Monocytes # (Auto) 0.6 x10^3/uL (0.0-1.1) Eosinophils # (Auto) 0.0 x10^3/uL (0.0-0.7) Basophils # (Auto) 0.0 x10^3/uL (0.0-0.2) Segmented Neutrophils % 89 % (35-66) H Lymphocytes % 4 % (24-48) L Monocytes % 7 % (0-10) Platelet Estimate Adequate (ADEQUATE) Polychromasia Slight Hypochromasia Mod Anisocytosis Slight Sodium Level 138 mmol/L (136-145) Potassium Level 3.3 mmol/L (3.5-5.1) L Chloride Level 102 mmol/L (98-107) Carbon Dioxide Level 26 mmol/L (21-32) Anion Gap 10 (6-14) Blood Urea Nitrogen 6 mg/dL (7-20) L Creatinine 0.8 mg/dL (0.6-1.0) Estimated GFR (Cockcroft-Gault) 95.6 BUN/Creatinine Ratio 8 (6-20) Glucose Level 133 mg/dL (70-99) H Calcium Level 9.0 mg/dL (8.5-10.1) Total Bilirubin 0.4 mg/dL (0.2-1.0) Aspartate Amino Transferase (AST) 13 U/L (15-37) L Alanine Aminotransferase (ALT) 15 U/L (14-59) Alkaline Phosphatase 79 U/L (46-116) Total Protein 8.0 g/dL (6.4-8.2) Albumin 3.3 g/dL (3.4-5.0) L Albumin/Globulin Ratio 0.7 (1.0-1.7) L Laboratory Tests 01/07/21 03:00 Laboratory Tests 01/07/21 03:00 Vital Signs: Vital Signs Date Time Temp Pulse Resp B/P (MAP) Pulse Ox O2 Delivery O2 Flow Rate FiO2 01/07/21 04:30 64 140/71 (94) 100 01/07/21 02:46 97.9 20 Room Air 97.9 EKG: EKG: [] Heart Score: Risk Factors: Risk Factors: DM, Current or recent (<one month) smoker, HTN, HLP, family history of CAD, obesity. Risk Scores: Score 0 - 3: 2.5% MACE over next 6 weeks - Discharge Home Score 4 - 6: 20.3% MACE over next 6 weeks - Admit for Clinical Observation Score 7 - 10: 72.7% MACE over next 6 weeks - Early Invasive Strategies Radiology/Procedures: Radiology/Procedures: [] Course & Med Decision Making: Course & Med Decision Making Pertinent Labs and Imaging studies reviewed. (See chart for details) [] Dragon Disclaimer: Dragon Disclaimer: This electronic medical record was generated, in whole or in part, using a voice recognition dictation system. Departure Departure Impression: Primary Impression: Nausea & vomiting Additional Impressions: Dehydration UTI (urinary tract infection) Disposition: 01 DC HOME SELF CARE/HOMELESS Condition: STABLE Referrals: NO PCP (PCP) Patient Instructions: Dehydration, Adult, Urinary Tract Infection Scripts Sennosides/Docusate Sodium (Colace 2-in-1 Tablet) 1 Each Tablet 1 TAB PO BID for 30 Days, #60 TAB 0 Refills Prov: OLENA BILLINGS MD 01/07/21 Ferrous Sulfate (FERROUS SULFATE) 325 Mg Tablet 1 TAB PO BID, #60 TAB 3 Refills Prov: OLENA BILLINGS MD 01/07/21 Ondansetron (ONDANSETRON ODT) 4 Mg Tab.rapdis 1 TAB PO PRN Q6-8HRS for nausea, #10 TAB Prov: OLENA BILLINGS MD 01/07/21 Cephalexin (CEPHALEXIN) 500 Mg Capsule 1 CAP PO BID, #14 CAP Prov: OLENA BILLINGS MD 01/07/21 Problem Qualifiers OLENA BILLINGS MD Jan 07, 2021 04:19
[2021-01-07 04:30] VITALS: BP 140/71
[2021-01-07] MEDS ORDERED: cefTRIAXone IV Push 1 GM VIAL. IVP ONE (04:30)
[2021-01-07] MEDS ORDERED: KETOROLAC 30 MG/ML VIAL. IVP ONE (04:30)
[2021-01-07] MEDS ORDERED: SENN-121 PO (04:46)
[2021-01-07] MEDS ORDERED: FERR325T14 PO (04:46)
== END 2021-01-07 05:05 | disposition home or self-care (01) ==
LOC: ER 02:38
DX: N39.0 Urinary tract infection, site not specified (principal); E86.0 Dehydration; R11.2 Nausea with vomiting, unspecified; Z88.0 Allergy status to penicillin
CPT/HCPCS: 36415; 80053; 81001; 81025; 85007; 85025; 96361; 96374; 96375; 99284; J0696; J1885; J2405; J2765; J7030

== ENCOUNTER 2021-01-19 06:13 | Emergency (ER) | payer OTHER ==
[~2021-01-19] VITALS: Ht 180.3 cm; Wt 82.7 kg
[~2021-01-19 06:13] MED LIST changes: +CEPH500C PO; +FERR325T14 PO; +SENN-121 PO
[2021-01-19] MEDS ORDERED: METOCLOPRAMIDE HCL 10 MG/2 ML VIAL. IVP ONE (06:30)
[2021-01-19 06:43] LABS: BASO % 1 % (0-3); EOS % 0 % (0-3); HEMATOCRIT 27.4 % (36.0-47.0); HEMOGLOBIN 8.5 g/dL (12.0-15.5); LYMPH # 0.7 x10^3/uL (1.0-4.8); LYMPH % 10 % (24-48); MEAN CORPUSCULAR HEMOGLOBIN 23 pg (25-35); MEAN CORPUSCULAR HGB CONC 31 g/dL (31-37); MEAN CORPUSCULAR VOLUME 75 fL (79-100); MONO # 0.3 x10^3/uL (0.0-1.1); MONO % 5 % (0-9); NEUT # 5.9 x10^3/uL (1.8-7.7); NEUT % 84 % (31-73); PLATELET COUNT 543 x10^3/uL (140-400); RED BLOOD COUNT 3.65 x10^6/uL (3.50-5.40); RED CELL DISTRIBUTION WIDTH 19.4 % (11.5-14.5)
--- NOTE | 2021-01-19 06:46 | EKG ---
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
[2021-01-19 06:52] LABS: PREG TEST PT QUAL NEGATIVE (NEG)
[2021-01-19 06:57] LABS: ALBUMIN 3.8 g/dL (3.4-5.0); ALBUMIN/GLOBULIN RATIO 0.7 (1.0-1.7); CALCIUM 9.3 mg/dL (8.5-10.1); CREATININE 0.9 mg/dL (0.6-1.0); GFR 83.5; MAGNESIUM 2.1 mg/dL (1.8-2.4); TOTAL BILIRUBIN 0.4 mg/dL (0.2-1.0); TOTAL PROTEIN 9.3 g/dL (6.4-8.2)
[2021-01-19] MEDS ORDERED: IV NORMAL SALINE 1000ML BAG 1,000 ML IV ONE (07:00)
--- NOTE | 2021-01-19 07:00 | RAD ---
Study: XR CHEST 1V Indication: Dizziness. Comparison: 12/07/2017 Findings: The cardiomediastinal silhouette and maynor are within normal limits. No localized airspace opacity, pl eural effusion or pneumothorax. Impression: No acute radiographic abnormality of the chest. No relevant change from the 12/07/2017 comparison. Electronically signed by: MUKESH SOW MD (01/19/2021 6:57 AM) [facility]
[2021-01-19 07:01] LABS: POTASSIUM 2.9 mmol/L (3.5-5.1)
[2021-01-19] MEDS: POTASSIUM CHLORIDE 20MEQ 100 ML IV SCH ×2 (07:10→08:25)
[2021-01-19 07:41] LABS: INFLUENZA A PATIENT NEGATIVE (NEGATIVE); INFLUENZA B PATIENT NEGATIVE (NEGATIVE)
--- NOTE | 2021-01-19 07:48 | PHYS DOC ---
Past Medical History Past Medical History: Other Additional Past Medical Histor: UTERINE FIBROIDS Past Surgical History: No Surgical History Smoking Status: Never Smoker Alcohol Use: Rarely Drug Use: None Adult General Chief Complaint Chief Complaint: MULTIPLE COMPLAINTS HPI HPI Patient is a 40 year old F with a recent diagnosis of uterine fibroids now presents emergency department with new onset of nausea vomiting. Patient states that for the last 3 to 4 days she has been having new onset of flulike illness which consisted of generalized body aches, sore throat, headache as well as new onset of GI upset and nausea vomiting. Patient states this is increased in alem pearson over the last few days and has had nonbloody nonbilious vomiting worsening over the last 24 hours. Has been associate with mild episodes of watery diarrhea but denies any significant abdominal pain. Denies any back pain. Denies any chest pain or shortness of breath Review of Systems Review of Systems Constitutional: Denies fever or chills [] Eyes: Denies change in visual acuity, redness, or eye pain [] HENT: Denies nasal congestion or sore throat [] Respiratory: Denies cough or shortness of breath [] Cardiovascular: No additional information not addressed in HPI [] GI: Denies abdominal pain, nausea, vomiting, bloody stools or diarrhea [] : Denies dysuria or hematuria [] Musculoskeletal: Denies back pain or joint pain [] Integument: Denies rash or skin lesions [] Neurologic: Denies headache, focal weakness or sensory changes [] Endocrine: Denies polyuria or polydipsia [] All other systems were reviewed and found to be within normal limits, except as documented in this note. Current Medications Current Medications Current Medications Medications (Trade) Dose Ordered Sig/Gail Start Time Stop Time Status Last Admin Dose Admin Ketorolac Tromethamine (Toradol 15mg Vial) 15 mg 1X ONCE 01/19/21 10:15 01/19/21 10:16 UNV Metoclopramide HCl (Reglan Vial) 10 mg 1X ONCE 01/19/21 06:30 01/19/21 06:32 DC 01/19/21 06:45 10 MG Morphine Sulfate (Morphine Sulfate) 4 mg 1X ONCE 01/19/21 10:15 01/19/21 10:16 UNV Potassium Chloride/Water 100 ml @ 50 mls/hr Q1H 01/19/21 07:15 01/19/21 09:14 DC 01/19/21 08:25 50 MLS/HR Sodium Chloride 1,000 ml @ 1,000 mls/hr 1X ONCE 01/19/21 07:00 01/19/21 07:59 DC 01/19/21 07:07 1,000 MLS/HR Allergies Allergies Allergies Coded Allergies Type Severity Reaction Last Updated Verified Penicillins Adverse Reaction Intermediate Nausea 07/01/15 No Physical Exam Physical Exam Constitutional: Well developed, well nourished, no acute distress, non-toxic appearance. [] HENT: Normocephalic, atraumatic, bilateral external ears normal, oropharynx moist, no oral exudates, nose normal. [] Eyes: PERRLA, EOMI, conjunctiva normal, no discharge. [] Neck: Normal range of motion, no tenderness, supple, no stridor. [] Cardiovascular:Heart rate regular rhythm, no murmur [] Lungs & Thorax: Bilateral breath sounds clear to auscultation [] Abdomen: Bowel sounds normal, soft, no tenderness, no masses, no pulsatile masses. [] Skin: Warm, dry, no erythema, no rash. [] Back: No tenderness, no CVA tenderness. [] Extremities: No tenderness, no cyanosis, no clubbing, ROM intact, no edema. [] Neurologic: Alert and oriented X 3, normal motor function, normal sensory function, no focal deficits noted. [] Psychologic: Affect normal, judgement normal, mood normal. [] Current Patient Data Vital Signs Vital Signs Date Time Temp Pulse Resp B/P (MAP) Pulse Ox O2 Delivery O2 Flow Rate FiO2 01/19/21 08:22 82 138/83 (101) 100 Room Air 01/19/21 06:20 98.0 20 98.0 Lab Values Laboratory Tests Test 01/19/21 06:25 01/19/21 07:15 White Blood Count 7.0 x10^3/uL (4.0-11.0) Red Blood Count 3.65 x10^6/uL (3.50-5.40) Hemoglobin 8.5 g/dL (12.0-15.5) L Hematocrit 27.4 % (36.0-47.0) L Mean Corpuscular Volume 75 fL (79-100) L Mean Corpuscular Hemoglobin 23 pg (25-35) L Mean Corpuscular Hemoglobin Concent 31 g/dL (31-37) Red Cell Distribution Width 19.4 % (11.5-14.5) H Platelet Count 543 x10^3/uL (140-400) H Neutrophils (%) (Auto) 84 % (31-73) H Lymphocytes (%) (Auto) 10 % (24-48) L Monocytes (%) (Auto) 5 % (0-9) Eosinophils (%) (Auto) 0 % (0-3) Basophils (%) (Auto) 1 % (0-3) Neutrophils # (Auto) 5.9 x10^3/uL (1.8-7.7) Lymphocytes # (Auto) 0.7 x10^3/uL (1.0-4.8) L Monocytes # (Auto) 0.3 x10^3/uL (0.0-1.1) Eosinophils # (Auto) 0.0 x10^3/uL (0.0-0.7) Basophils # (Auto) 0.0 x10^3/uL (0.0-0.2) Sodium Level 137 mmol/L (136-145) Potassium Level 2.9 mmol/L (3.5-5.1) *L Chloride Level 101 mmol/L (98-107) Carbon Dioxide Level 23 mmol/L (21-32) Anion Gap 13 (6-14) Blood Urea Nitrogen 8 mg/dL (7-20) Creatinine 0.9 mg/dL (0.6-1.0) Estimated GFR (Cockcroft-Gault) 83.5 BUN/Creatinine Ratio 9 (6-20) Glucose Level 127 mg/dL (70-99) H Calcium Level 9.3 mg/dL (8.5-10.1) Magnesium Level 2.1 mg/dL (1.8-2.4) Total Bilirubin 0.4 mg/dL (0.2-1.0) Aspartate Amino Transferase (AST) 11 U/L (15-37) L Alanine Aminotransferase (ALT) 14 U/L (14-59) Alkaline Phosphatase 91 U/L (46-116) Creatine Kinase 37 U/L (26-192) Total Protein 9.3 g/dL (6.4-8.2) H Albumin 3.8 g/dL (3.4-5.0) Albumin/Globulin Ratio 0.7 (1.0-1.7) L Serum Test, Qualitative Negative (NEG) Influenza Type A Antigen Negative (NEGATIVE) Influenza Type B Antigen Negative (NEGATIVE) Laboratory Tests 01/19/21 06:25 Laboratory Tests 01/19/21 06:25 EKG EKG [] Radiology/Procedures Radiology/Procedures [] Course & Med Decision Making Course & Med Decision Making Pertinent Labs and Imaging studies reviewed. (See chart for details) 40F presented to the emergency department new onset of flulike illness mostly consisting of vomiting and diarrhea which is most consistent with acute gastroenteritis. Other life-threatening diagnoses including cholecystitis and appendicitis have been considered but at this time are unlikely given the patient's current physical exam and presentation. At this time will obtain labs to make sure there is no significant underlying etiology and treat the patient. Patient noted to have mild hypokalemia but no significant EKG changes. Patient's potassium repleted and states that her symptoms are improved. Patient was able to tolerate p.o. intake without any significant difficulty. At this t leon will discharge Dragon Disclaimer Dragon Disclaimer This electronic medical record was generated, in whole or in part, using a voice recognition dictation system. Departure Departure Impression: Primary Impression: Gastroenteritis Disposition: 01 DC HOME SELF CARE/HOMELESS Condition: GOOD Referrals: NO PCP (PCP) Patient Instructions: Gastritis, Adult Additional Instructions: EMERGENCY DEPARTMENT GENERAL DISCHARGE INSTRUCTIONS Thank you for coming to [facility] Emergency Department (ED) today and trusting us with you care. We trust that you had a positive experience in our Emergency Department. If you wish to speak to the department management, you may call the Director at [phone]. YOUR FOLLOW UP INSTRUCTIONS ARE FOLLOWS: 1. Do you have a private Doctor? If you do not have a private doctor, please ask for a resource list of physicians or clinics that may be able to assist you with follow up care. 2. The Emergency Physicain has interpreted your x-rays. The X-Ray specialist will also review them. If there is a change in the findings, you will be notified in 48 hours when at all possible. 3. A lab test or culture has been done, your results will be reviewed and you will be notified if you need a change in treatment. ADDITIONAL INSTRUCTIONS AND INFORMATION: 1. Your care today has been supervised by a physician who is specially trained in emergency care. Many problems require more than one evaluation for a complete diagnosis and treatment. We recommend that you schedule your follow up appointment as recommended to ensure complete treatment of you illness or injury. If you are unable to obtain follow up care and continue to have a problem, or if your condition worsens, we recommend that you return to the ED. 2. We are not able to safely determine your condition over the phone nor are we able to give sound medical advice over the phone. For these safety reasons, if you call for medical advice we will ask you to come to the ED for further evaluation. 3. If you have any questions regarding these discharge instructions please call the ED at [phone]. SAFETY INFORMATION: In the interest of safety, wellness, and injury prevention; we encourage you to wear your sealbelt, if you smoke; quite smoking, and we encourage family to use a protective helmet for bicycling and other sporting events that present an increased risk for head injury. IF YOUR SYMPTOMS WORSEN OR NEW SYMPTOMS DEVELOP, OR YOU HAVE CONCERNS ABOUT YOUR CONDITION; OR IF YOUR CONDITION WORSENS WHILE YOU ARE WAITING FOR YOUR FOLLOW UP APPOINTMENT; EITHER CONTACT YOUR PRIMARY CARE DOCTOR, THE PHYSICIAN WHOSE NAME AND NUMBER YOU WERE GIVEN, OR RETURN TO THE ED IMMEDIATELY. Scripts Metoclopramide Hcl (REGLAN) 10 Mg Tablet 1 TAB PO QID for nausa for 30 Days, #120 TAB 0 Refills before food and bedtime Prov: RAMEZ WHITNEY MD 01/19/21 RAMEZ WHITNEY MD Jan 19, 2021 07:48
[2021-01-19 08:22] VITALS: BP 138/83
[2021-01-19] MEDS ORDERED: METO10TA81 PO (10:05)
[2021-01-19] MEDS ORDERED: MORPHINE SULFATE 4 MG/ML VIAL. IV ONE (10:15)
[2021-01-19] MEDS ORDERED: PROCHLORPERAZINE 10 MG/2 ML VIAL. IV ONE (10:15)
[2021-01-19] MEDS ORDERED: KETOROLAC 15 MG/ML VIAL. IVP ONE (10:15)
== END 2021-01-19 11:05 | disposition home or self-care (01) ==
LOC: ER 06:13
DX: K52.9 Noninfective gastroenteritis and colitis, unspecified (principal); R11.2 Nausea with vomiting, unspecified; J02.9 Acute pharyngitis, unspecified
CPT/HCPCS: 36415; 71045; 80053; 82550; 83735; 84703; 85025; 87804; 93005; 96365; 96366; 96375; 99285; J0780; J1885; J2765; J3480; J7030